=== PATIENT | male | born 1995 | race Caucasian/White ===

== ENCOUNTER → 2016-05-20 | Emergency (ER) | payer BC, OTHER ==
[~2016-05-20] VITALS: Ht 185.4 cm; Wt 75.0 kg
[~2016-05-20] MED LIST: HALOPERIDOL 5 MG/ML (HALDOL) 1 ML AMP IM ONE; LORazepam 2 MG/ML (ATIVAN) 1 ML VIAL IM ONE
--- NOTE | 2016-05-20 10:23 | NUR ---
THIS NURSE ATTEMPTED TO OBTAIN UA BY HELP PT STAND TO USE URINAL. PT VERY TEARFUL AND DISORIENTED, AFTER STANDING HE STATED THAT HE COULD NOT URINATE AT THIS TIME. PT ASSISTED BACK TO BED, MOM AT BEDSIDE.
[2016-05-20 10:40] LABS: BASOPHILS % (AUTO) 0 % (0-2); EOSINOPHILS % (AUTO) 0 % (0-4); LYMPHOCYTES # (AUTO) 0.8 X10^3; MEAN CORPUSCULAR HEMOGLOBIN 31.1 PG (26.0-34.0); MEAN CORPUSCULAR VOLUME 83 FL (80-100); MEAN PLATELET VOLUME 8.8 FL (6.0-9.5); MONOCYTES # (AUTO) 0.3 X10^3; MONOCYTES % (AUTO) 4 % (3-11); NEUTROPHILS # (AUTO) 5.7 X10^3; NEUTROPHILS % (AUTO) 83 % (51-67); PLATELET COUNT 258 10^3uL (150-450); WHITE BLOOD COUNT 6.82 10^3uL (4.0-11.0)
[2016-05-20 10:44] LABS: MEAN CORPUSCULAR HGB CONC 37.3 g/dL (31.0-37.0)
[2016-05-20 10:59] LABS: ALBUMIN 4.7 g/dL (3.4-5.0); ALKALINE PHOSPHATASE 66 U/L (38-126); ANION GAP 17.6 MEQ/L (3-15); BUN/CREATININE RATIO 15 (10-20); CALCULATED IONIZED CALCIUM 4.4 mg/dL (3.8-4.6); TOTAL PROTEIN 7.6 g/dL (6.4-8.5)
--- NOTE | 2016-05-20 12:34 | NUR ---
PT RETURNS FROM CT, NURSE IS PREPARING TO STRAIGHT CATH TO OBTAIN UA. PTS AUNT STATES THAT PT'S CLOTHES ARE WET FROM URINE. MOM LEAVES TO GO GET CLEAN PANTS FOR PT, BROTHER STAYS AT BEDSIDE. PT ASSISTED WITH HELP FROM BROTHER AND ANOTHER NURSE TO REMOVE WET CLOTHES AND PUT A CLEAN GOWN ON. PT IS ABLE TO VOID INTO A URINAL AT THIS TIME SO UA WAS OBTAINED. PT ASSISTED BACK TO BED.
[2016-05-20 12:38] LABS: BILIRUBIN,URINE Negative (Negative); CLARITY,URINE Clear; COLOR,URINE Yellow; GLUCOSE, URINE (UA) Negative (Negative); LEUKOCYTE ESTERASE ,URINE Negative (Negative); UROBILINOGEN,URINE 0.2 mg/dL (0.2-1.0)
[2016-05-20 12:47] LABS: AMPHETAMINE SCREEN, URINE Positive (Negative); CANNABINOID SCREEN, URINE Positive (Negative); METHAMPHETAMINE SCREEN URINE S POSITIVE (NEGATIVE); OPIATE SCREEN URINE Negative (Negative); PROPOXYPHENE STAT NEGATIVE (NEGATIVE)
[2016-05-20 13:34] LABS: CREATINE KINASE 103 U/L (55-170)
[2016-05-20 14:18] VITALS: BP 146/91
== END | disposition home or self-care (01) ==
LOC: ED 09:55
DX: F15.151 Other stimulant abuse with stimulant-induced psychotic disorder with hallucinations (principal); F12.151 Cannabis abuse with psychotic disorder with hallucinations; F15.121 Other stimulant abuse with intoxication delirium; F12.121 Cannabis abuse with intoxication delirium
CPT/HCPCS: 36415; 70450; 80053; 80307; 80320; 80329; 81003; 82550; 82553; 84443; 84484; 85025; 93005; 96372; 99283; J1630; J2060; 93010; 99285